=== PATIENT | female | born 1975 ===

== ENCOUNTER 2024-09-03 13:36 | Day surgery (SDC) | payer OTHER ==
[~2024-09-03] VITALS: Ht 157.5 cm; Wt 68.0 kg
[~2024-09-03 13:36] MED LIST: Atropine Sulfate 0.1 MG/ML 10ML SYR ONE; Glycopyrrolate 0.2 MG/ML 1MLVIAL ONE; Lidocaine 2% 5 ML SDV ONE; Lidocaine HCl/Pf 1% 5 ML VIAL ONE; Ondansetron HCl 2 MG / ML 2ML Vial ONE; ePHEDrine Sulfate 50 MG/ML 1ML Injection ONE
[2024-09-03] MEDS ORDERED: Lactated Ringer's 1,000 ML IV ONE (14:32)
[2024-09-03] MEDS ORDERED: ACYCLOVIR400 MG PO (14:39)
[2024-09-03] MEDS ORDERED: IBUPROFEN200 M1 PO (14:40)
[2024-09-03] MEDS ORDERED: propofoL 50 ML IV ONE (15:09)
--- NOTE | 2024-09-03 16:43 | NUR ---
09/03/24 1643 Tara Carey SCOPE COLOR FOR UPPER ENDOSCOPY IS WHITE, LOWER SCOPE COLOR YELLOW/RED
== END 2024-09-03 16:37 | disposition home or self-care (01) ==
LOC: ORSCSDS 13:36 → EDSEX 14:45 → ORSCSDS 14:45
DX: Z12.11 Encounter for screening for malignant neoplasm of colon (principal); Z80.0 Family history of malignant neoplasm of digestive organs; K21.9 Gastro-esophageal reflux disease without esophagitis
CPT/HCPCS: J0461; J2003; J2405; J2704

== ENCOUNTER → 2024-09-25 | Outpatient (CLI) | payer OTHER ==
[~2024-09-25] MED LIST changes: +ACYCLOVIR400 MG PO; -Atropine Sulfate 0.1 MG/ML 10ML SYR ONE; -Glycopyrrolate 0.2 MG/ML 1MLVIAL ONE; +IBUPROFEN200 M1 PO; -Lidocaine 2% 5 ML SDV ONE; -Lidocaine HCl/Pf 1% 5 ML VIAL ONE; -Ondansetron HCl 2 MG / ML 2ML Vial ONE; -ePHEDrine Sulfate 50 MG/ML 1ML Injection ONE
[2024-10-05 15:04] LABS: HPV HIGH RISK BY TMA Not Detected; HPV SOURCE Cervical
== END ==
LOC: LAB 10:52 → LAB SHORT 10:52
PROVIDERS: Physician Assistant
DX: Z01.419 Encounter for gynecological examination (general) (routine) without abnormal findings (principal); Z97.5 Presence of (intrauterine) contraceptive device
CPT/HCPCS: 87624; G0123

== ENCOUNTER 2025-02-15 11:25 | Day surgery (SDC) | payer OTHER ==
[~2025-02-15] VITALS: Ht 157.5 cm; Wt 68.3 kg
[2025-02-15] VITALS (8 sets, daily range): BP systolic 118–136; BP diastolic 75–98
[2025-02-15] MEDS ORDERED: Dexamethasone Sod Phos 10 MG/ML 1ML VIAL ONE (13:08)
[2025-02-15] MEDS ORDERED: FentaNYL Citrate 50 MCG/ML 2 ML Injection ONE (13:08)
[2025-02-15] MEDS ORDERED: Ketorolac Tromethamine 30mg Vial ONE (13:08)
[2025-02-15] MEDS ORDERED: Ondansetron HCl 2 MG / ML 2ML Vial ONE (13:08)
[2025-02-15] MEDS ORDERED: FentaNYL Citrate 50 MCG/ML 2 ML Injection IV PRN ×2 (14:20→14:25)
[2025-02-15] MEDS ORDERED: Ondansetron HCl 2 MG / ML 2ML Vial IV PRN (14:20)
[2025-02-15] MEDS ORDERED: Albuterol 2.5 MG/3 ML VIAL INH PRN (14:20)
[2025-02-15] MEDS ORDERED: HYDROmorphone HCl/Pf 1MG SYR IV PRN ×2 (14:25)
[2025-02-15] MEDS ORDERED: Metoclopramide HCl 5MG / ML 2ML Vial IV PRN (14:25)
--- NOTE | 2025-02-15 14:26 | NUR ---
02/15/25 1426 Any Baxter FLUID VOLUME DEFICIT 140ML
--- NOTE | 2025-02-15 15:55 | NUR ---
DISCHARGE NOTE PT A&OX4, BREATHING RA, VSS, TOLERATING PO INTAKE, PT HAS MILD CRAMPING- DID NOT TAKE PO PAIN MEDICATION IN [facility]. PT AMBULATED TO BR, ABLE TO VOID, MILD BRIGHT RED DISCHARGE TO [facility]. Discharge instructions reviewed with patient. Patient verbalizes understanding. Copy given to patient to take home. DR MERAZ AT BEDSIDE PRIOR TO DC TO ANSWER QUESTIONS. Discharged via wheelchair to private car for ride home.
== END 2025-02-15 15:40 | disposition home or self-care (01) ==
LOC: ORSCMMR 11:25 → ORD 12:30 → ORSCMMR 12:30
PROVIDERS: Obstetrics & Gynecology
PROC: 0UDB8ZX Extraction of Endometrium, Via Natural or Artificial Opening Endoscopic, Diagnostic (ICD-10-PCS; principal; 2025-02-15 12:30)
DX: N93.9 Abnormal uterine and vaginal bleeding, unspecified (principal)
CPT/HCPCS: 86850; 86900; 86901; 88305; J1100; J1885; J2405; J2704; J3010; J7120